=== PATIENT | male | born 1965 | race Caucasian/White ===

== ENCOUNTER 2017-07-27 20:23 | Emergency (ER) | payer OTHER, SELFPAY ==
[2017-07-27] MEDS ORDERED: HYDROcodone/Acetaminophen 5/325 mg Tablet ONE (20:42)
[2017-07-27] MEDS ORDERED: Ondansetron ODT 4 MG TAB ONE (20:43)
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
== END 2017-07-27 23:24 | disposition home or self-care (01) ==
LOC: ERS 20:23
DX: S32.029A Unspecified fracture of second lumbar vertebra, initial encounter for closed fracture (principal); S16.1XXA Strain of muscle, fascia and tendon at neck level, initial encounter; E78.5 Hyperlipidemia, unspecified; F41.9 Anxiety disorder, unspecified; F31.9 Bipolar disorder, unspecified; F17.210 Nicotine dependence, cigarettes, uncomplicated; V43.92XA Unspecified car occupant injured in collision with other type car in traffic accident, initial encounter
CPT/HCPCS: 72125; 72131; Q0162

== ENCOUNTER 2018-07-11 14:37 | Inpatient (IN) | payer SELFPAY ==
[2018-07-11] MEDS ORDERED: methylPREDNISolone Sod Succ/PF 125 MG/2 ML VIAL ONE (15:23)
[2018-07-11 15:41] LABS: Hemoglobin 13.9 g/dL (14.0-18.0); Mean Corpuscular HGB CONC 33.5 g/dL (32.0-36.0); Mean Corpuscular Hemoglobin 30.3 pg (27.0-31.0); Mean Corpuscular Volume 90.4 fL (78.0-98.0); Mean Platelet Volume 7.7 fL (7.4-10.4); Platelet Count 325 thou/uL (130-400); RBC Distribution Width 12.4 % (11.5-14.5); Red Blood Cell (RBC) Count 4.58 mill/uL (4.70-6.10); White Blood Cell (WBC) Count 9.4 thou/uL (4.8-10.8)
--- NOTE | 2018-07-11 15:55 | RAD ---
PORTABLE CHEST: History: Cough, congestion. Shortness of breath. Comparison: 08-28-15 FINDINGS: Heart size is enlarged. Pulmonary vessels are mildly engorged, slightly more prominent than seen on t he prior examination. No signs of overt failure. IMPRESSION: Cardiomegaly with mild vascular engorgement. POS: TPC
[2018-07-11 16:01] LABS: Band 16 % (5-11); Lymphocytes 16 % (21-51); MDiff Complete? YES; Monocytes 16 % (0-10); Neutrophil 49 % (42-75); Platelet Morphology Comment Appears Adequate; Polychromasia SLIGHT = 2-3 cells (100X) (0-2/hpf); Reactive Lymphocytes 3 % (0-10)
[2018-07-11] MEDS ORDERED: Oseltamivir 75 MG CAP PO SCH (16:45)
[2018-07-11 17:02] LABS: Base Excess-Venous 2.7 mmol/L (0 (+/- 2.5)); Bicarbonate (HCO3v) 26.2 mmol/L (22.0-29.0); CO2 Tension (PvCO2) 36.3 mmHg (41.0-51.0); Calcium, Ionized 1.02 mmol/L (1.12-1.32); Hemoglobin - Calc 15.8 g/dL (12.0-18.0); O2 Tension (PvO2) 63.7 mmHg (35.0-45.0); Potassium 3.8 mmol/L (3.4-4.7); T. Carbon Dioxide 27.3 mmol/L (1.0-85.0); pH (Venous) 7.467 (7.35-7.45); vO2 Saturation-calc 93.4 % (94-98)
[2018-07-11] MEDS ORDERED: Acetaminophen 500 MG TAB ONE (17:08)
[2018-07-11 17:33] LABS: Albumin 4.1 g/dL (3.5-5.0)
[2018-07-11 17:34] LABS: Calcium 8.9 mg/dL (7.8-10.44); Chloride 96 mmol/L (98-107); Potassium 3.9 mmol/L (3.5-5.1); Sodium 130 mmol/L (136-145)
[2018-07-11 17:35] LABS: Globulin 2.6 g/dL (2.4-3.5); Glucose 121 mg/dL (70-105); Protein, Total 6.7 g/dL (6.0-8.3)
[2018-07-11 17:37] LABS: Anion Gap 15 mmol/L (10-20); Bilirubin, Total 0.4 mg/dL (0.2-1.2); Carbon Dioxide 23 mmol/L (22-29)
[2018-07-11 17:38] LABS: Alkaline Phosphatase 92 U/L (40-150)
[2018-07-11 17:39] LABS: BUN (Urea Nitrogen) 20 mg/dL (8.4-25.7); Calc. Creatinine Clearance 0 mL/min (70-130); Estimated GFR-MDRD Greater than 90
[2018-07-11 17:40] LABS: AST (SGOT) 23 U/L (5-34)
[2018-07-11 17:41] LABS: ALT (SGPT) 19 U/L (8-55)
[2018-07-11] MEDS ORDERED: HumaLOG 300 UNITS/3 ML VIAL SC PRN (23:58)
[2018-07-11] MEDS ORDERED: Ondansetron PF 4 MG/2 ML Vial IVP PRN (23:58)
[2018-07-11] MEDS ORDERED: Acetaminophen 650 MG Suppository PR PRN (23:58)
[2018-07-11] MEDS ORDERED: Senokot S 8.6-50 MG TAB PO PRN (23:58)
[2018-07-11] MEDS ORDERED: hydrALAZINE 20 MG/ML VIAL SLOW IVP PRN (23:58)
[2018-07-11] MEDS ORDERED: Dextrose 50% Abboject 50 ML SYRINGE SLOW IVP PRN (23:58)
[2018-07-11] MEDS ORDERED: Ibuprofen 600 MG TAB PO PRN (23:58)
[2018-07-11] MEDS ORDERED: Dextrose 5% in Water 1,000 ML IV PRN (23:58)
[2018-07-11] MEDS ORDERED: cloNIDine 0.1 MG TAB PO PRN (23:58)
[2018-07-11] MEDS ORDERED: Ondansetron ODT 4 MG TAB PO PRN (23:58)
[2018-07-12] MEDS ORDERED: Oseltamivir 75 MG CAP PO SCH (00:15)
--- NOTE | 2018-07-12 00:40 | HP ---
PRIMARY CARE PHYSICIAN: Rose Russell. CHIEF COMPLAINT: Shortness of breath. HISTORY OF PRESENT ILLNESS: This is a 52-year-old white male with a known history of hypertension, hyperlipidemia and borderline diabetes as well as a history of longstanding tobacco abuse, who presents to the emergency room complaining of shortness of breath. The shortness of breath has been going on for 2 days and is associated with fevers, chills, runny nose, sore throat, body aches and a cough productive of clear sputum. The patient was seen in the emergency room, noted to be room air hypoxic, now saturating well on 4 L. He was very wheezy and given DuoNebs and Solu-Medrol. He has no history of COPD, but does have a longstanding history of smoking. His flu A test was positive. Chest x-ray was negative for pneumonia, so he is being admitted to the hospital. PAST MEDICAL HISTORY: 1. Hypertension. 2. Dyslipidemia. 3. Mesenteric artery occlusion. 4. 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 PAST PSYCHIATRIC HISTORY: Depression. PAST SURGICAL HISTORY: Laminectomy at L3-L4 in 1989. 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 He smokes half to three-quarter pack per day for last 40 years. Denies any alcohol or illicit drug use. He is , but states that his ex- is his fiancee now. FAMILY HISTORY: Mother of either a stroke or blood clots of some sort in her 40s. Father of a bad blood transfusion. Both mother and father had diabetes and hypertension. ALLERGIES: SULFA ANTIBIOTICS. CURRENT MEDICATIONS: Daily multivitamin. REVIEW OF SYSTEMS: CONSTITUTIONAL: See HPI. EYES: No double vision or blurred vision. ENT: See HPI. CARDIOVASCULAR: No chest pain. No palpitations or racing heart. PULMONARY: See HPI. GASTROINTESTINAL: He has abdominal soreness from the persistent coughing, but denies any nausea or vomiting. No diarrhea or constipation. GENITOURINARY: No dysuria or hematuria. MUSCULOSKELETAL: Generalized muscle aches as per HPI. SKIN: No rashes or other lesions noted. NEUROLOGIC: Chronic numbness and tingling in his left hand. PHYSICAL EXAMINATION: VITAL SIGNS: Blood pressure 107/56, pulse 90, respirations 18, temperature 99.0, and O2 saturation 95% on 4 L. GENERAL: This is a well-developed obese white male with mild increased work of breathing and intermittent coughing spells, on oxygen. HEENT: Pupils equal, round, and reactive to light. Oropharynx clear without lesions, erythema or exudate. NECK: Supple. No lymphadenopathy. No thyroid nodules or enlargement. No JVD. HEART: Regular rate and rhythm. No murmurs, rubs or gallops. LUNGS: He has bilateral wheezes and tight breath sounds bilaterally. ABDOMEN: Obese, soft, generalized mild tenderness to palpation of the abdominal wall. No guarding or rebound tenderness. No hepatosplenomegaly or other masses. EXTREMITIES: No clubbing, cyanosis or edema. Good peripheral pulses. SKIN: No rashes or other lesions noted. NEUROLOGIC: Intact strength in all extremities. No facial droop. LABORATORY DATA: CBC with a hemoglobin of 13.9 and hematocrit of 41.4. The rest is normal. Venous blood gas shows a pH of 7.4, pCO2 of 36, and pO2 of 63. His sodium was 131, potassium was 3.8, and chloride was 94. I do not see a creatinine drawn at this time. Lactic acid was negative. Troponin was negative. Brain natriuretic peptide was normal. DIAGNOSTIC DATA: I did review the chest x-ray done in the emergency room along with the radiologist's report. The chest x-ray shows no infiltrates. There is some possible pulmonary vascular engorgement and a large heart. Flu test positive for influenza A. ASSESSMENT: 1. Influenza A. The patient got a dose of Tamiflu in the ER. We will continue for a full 10 doses and put the patient on droplet isolation. 2. Acute hypoxic respiratory failure, likely exacerbation of underlying chronic obstructive pulmonary disease. The patient is now on home oxygen; hopefully, he will respond well to steroids and nebulizers, and eventually I will get him back off to room air over the next few days. Should it take a prolonged time to get him off, he may benefit from a pulmonology consult during his hospitalization. 3. History of hypertension, currently without any elevated blood pressures. We will put some p.r.n. medications, especially with being on the steroids, and watch closely. 4. History of borderline diabetes. We will put the patient on fingerstick blood sugars q.a.c. and at bedtime with low insulin sliding scale. Check hemoglobin A1c in the morning. 5. Gastrointestinal prophylaxis. We will put the patient on Protonix 40 mg daily. 6. Arthritis pains and generalized body aches. We will give the patient alternating Tylenol and ibuprofen. We will go ahead and check creatinine to make sure he does not have any underlying renal insufficiency. 7. Code status: I did discuss this with the patient. He is a full code. Should he be incapacitated, he states that his medical decision maker would be his Della reed. Job ID: [id number]
[2018-07-12] MEDS ORDERED: Ibuprofen 200 MG TAB ONE (02:32)
[2018-07-12] MEDS ORDERED: Acetaminophen 325 MG TAB ONE (02:32)
[2018-07-12] MEDS: Acetaminophen 325 MG TAB PO PRN ×3 (02:34→21:28)
[2018-07-12 03:08] VITALS: BMI 35.9
[2018-07-12 04:03] LABS: #Lymphocytes 0.7 thou/uL (1.20-3.40); #Monocytes 1.2 thou/uL (0.11-0.59); #Neutrophils 9.3 thou/uL (1.40-6.50); %Basophils 0.1 % (0.0-1.0); %Eosinophils 0.4 % (0.0-10.0); %Lymphocytes 6.6 % (21.0-51.0); %Monocytes 10.6 % (0.0-10.0); %Neutrophils 82.4 % (42.0-75.0); Hemoglobin 14.1 g/dL (14.0-18.0); Mean Corpuscular HGB CONC 32.7 g/dL (32.0-36.0); Mean Corpuscular Volume 91.9 fL (78.0-98.0); Mean Platelet Volume 6.8 fL (7.4-10.4); Platelet Count 303 thou/uL (130-400); RBC Distribution Width 12.3 % (11.5-14.5); Red Blood Cell (RBC) Count 4.68 mill/uL (4.70-6.10); White Blood Cell (WBC) Count 11.3 thou/uL (4.8-10.8)
[2018-07-12 04:12] LABS: Hemoglobin A1c 5.7 % (4.0-6.0)
[2018-07-12 04:22] LABS: Anion Gap 16 mmol/L (10-20); BUN (Urea Nitrogen) 21 mg/dL (8.4-25.7); Calc. Creatinine Clearance 248 mL/min (70-130); Calcium 9.5 mg/dL (7.8-10.44); Carbon Dioxide 23 mmol/L (22-29); Chloride 101 mmol/L (98-107); Estimated GFR-MDRD Greater than 90; Glucose 131 mg/dL (70-105); Potassium 4.4 mmol/L (3.5-5.1); Sodium 136 mmol/L (136-145)
--- NOTE | 2018-07-12 08:48 | PDOC.PN ---
- Subjective Encounter Start Date: 07/12/18 Encounter Start Time: 11:00 Subjective: Patient feeling much better. Able to decrease O2 to 2L today. Wheezing and -: chest tightness significantly better. - Objective Resuscitation Status - Order Detail: 07/11/18 17:09 Resuscitation Status Routine Resuscitation Status: FULL: Full Resuscitation Discussed with: Patient JEANNIE Reviewed: Yes Vital Signs & Weight: Vital Signs (12 hours) Temp Pulse Resp BP BP Pulse Ox 07/12/18 07:31 79 20 126/47 L 95 07/12/18 07:00 97.7 F 77 24 H 128/67 95 07/12/18 06:38 78 20 97 07/12/18 04:59 97.7 F 07/12/18 04:42 67 16 96 07/12/18 04:00 72 20 106/62 94 L 07/12/18 03:03 97.8 F 79 20 124/73 94 L Weight Weight 243 lb Result Diagrams: 07/12/18 03:55 07/12/18 03:55 Additional Labs: Accuchecks 07/12/18 05:23 POC Glucose 122 H Phys Exam - Physical Examination Constitutional: NAD HEENT: moist MMs Respiratory: no rales, no rhonchi wheezing and tightness improved, much better air movement today Cardiovascular: RRR, no significant murmur Gastrointestinal: soft, positive bowel sounds Neurological: non-focal, moves all 4 limbs Psychiatric: normal affect, A&O x 3 Dx/Plan (1) Influenza A Code(s): J10.1 - FLU DUE TO OTH IDENT INFLUENZA VIRUS W OTH RESP MANIFEST Status: Acute Comment: Tamiflu (2) Acute respiratory failure with hypoxia Code(s): J96.01 - ACUTE RESPIRATORY FAILURE WITH HYPOXIA Status: Acute Comment: weaned to 2L NC O2 (3) COPD (chronic obstructive pulmonary disease) with acute bronchitis Code(s): J44.0 - CHRONIC OBSTRUCTIVE PULMON DISEASE W ACUTE LOWER RESP INFCT; J20.9 - ACUTE BRONCHITIS, UNSPECIFIED Status: Acute Comment: on negs, steroids (4) Tobacco abuse Code(s): Z72.0 - TOBACCO USE Status: Chronic Comment: Patient determined to quit (5) Diabetes mellitus type 2 in obese Code(s): E11.69 - TYPE 2 DIABETES MELLITUS WITH OTHER SPECIFIED COMPLICATION; E66.9 - OBESITY, UNSPECIFIED Status: Chronic Comment: Blood sugars not significantly elevated even on steroids - Plan cont current plan of care, respiratory therapy, DVT proph w/lovenox, DVT proph w /SCDs If continues to improve quickly can likely go home tomorrow. * . - Discharge Encounter end time: 11:10
[2018-07-12] MEDS ORDERED: Enoxaparin Sodium 40 MG/0.4 ML SYRINGE ONE (09:36)
[2018-07-12] MEDS: Enoxaparin Sodium 40 MG/0.4 ML SYRINGE SC SCH (09:50)
[2018-07-12] MEDS: HumaLOG 300 UNITS/3 ML VIAL SC PRN (13:49)
[2018-07-12] MEDS ORDERED: Prevnar 13-Val Conj/PF 0.5 ML SYRINGE IM ONE (14:45)
[2018-07-12] MEDS ORDERED: Ibuprofen 200 MG TAB PO PRN (18:51)
[2018-07-12] MEDS ORDERED: Guaifenesin DM 100-10/5 ML UDCUP PO PRN (18:52)
[2018-07-12] MEDS: Gabapentin 100 MG CAP PO SCH (21:28)
[2018-07-13] MEDS ORDERED: Loratadine 10 MG TAB PO PRN (01:05)
[2018-07-13] MEDS: HumaLOG 300 UNITS/3 ML VIAL SC PRN (06:33)
--- NOTE | 2018-07-13 08:06 | PDOC.PN ---
- Subjective Encounter Start Date: 07/13/18 Encounter Start Time: 10:00 Subjective: Patient feeling much better. Off Oxygen. Eager to go home. - Objective Resuscitation Status - Order Detail: 07/11/18 17:09 Resuscitation Status Routine Resuscitation Status: FULL: Full Resuscitation Discussed with: Patient JEANNIE Reviewed: Yes Vital Signs & Weight: Vital Signs (12 hours) Temp Pulse Resp BP Pulse Ox 07/13/18 06:58 84 18 94 L 07/13/18 05:42 97.9 F 79 20 131/74 93 L 07/13/18 00:53 75 16 07/13/18 00:00 98.1 F 75 20 112/65 98 Weight Weight 243 lb I&O: 07/12/18 07/13/18 07/14/18 06:59 06:59 06:59 Intake Total 1939 Balance 1939 Result Diagrams: 07/12/18 03:55 07/12/18 03:55 Additional Labs: Accuchecks 07/13/18 07/12/18 07/12/18 05:42 21:14 16:46 POC Glucose 202 H 187 H 185 H 07/12/18 13:43 POC Glucose 225 H Phys Exam - Physical Examination Constitutional: NAD HEENT: moist MMs Respiratory: no rales, no rhonchi wheezing almost cleared, good air movement bilaterally Cardiovascular: RRR Gastrointestinal: soft, positive bowel sounds Neurological: non-focal, moves all 4 limbs Psychiatric: normal affect, A&O x 3 Dx/Plan (1) Influenza A Code(s): J10.1 - FLU DUE TO OTH IDENT INFLUENZA VIRUS W OTH RESP MANIFEST Status: Acute Comment: Tamiflu (2) Acute respiratory failure with hypoxia Code(s): J96.01 - ACUTE RESPIRATORY FAILURE WITH HYPOXIA Status: Resolved Comment: weaned of O2 today (3) COPD (chronic obstructive pulmonary disease) with acute bronchitis Code(s): J44.0 - CHRONIC OBSTRUCTIVE PULMON DISEASE W ACUTE LOWER RESP INFCT; J20.9 - ACUTE BRONCHITIS, UNSPECIFIED Status: Acute Comment: on negs, steroids (4) Tobacco abuse Code(s): Z72.0 - TOBACCO USE Status: Chronic Comment: Patient determined to quit (5) Diabetes mellitus type 2 in obese Code(s): E11.69 - TYPE 2 DIABETES MELLITUS WITH OTHER SPECIFIED COMPLICATION; E66.9 - OBESITY, UNSPECIFIED Status: Chronic Comment: Blood sugars not significantly elevated even on steroids - Plan cont current plan of care, respiratory therapy Will d/c home with albuterol, steroids, Tamiflu. * . - Discharge Day Encounter end time: 10:20
[2018-07-13 08:10] VITALS: TEMP 97.7
[2018-07-13] MEDS: Enoxaparin Sodium 40 MG/0.4 ML SYRINGE SC SCH (08:29)
[2018-07-13] MEDS: Gabapentin 100 MG CAP PO SCH (08:29)
[2018-07-13] MEDS ORDERED: guaiFENesin ER 600 MG TAB PO SCH (09:00)
[2018-07-13] MEDS ORDERED: Oseltamivir 75 MG CAP PO SCH (09:00)
[2018-07-13 11:29] VITALS: BP 137/77
--- NOTE | 2018-07-13 14:57 | DIS ---
DATE OF ADMISSION: 07/11/2018 DATE OF DISCHARGE: 07/13/2018 PRIMARY CARE PHYSICIAN: Rose Russell. REASON FOR ADMISSION: Influenza A with COPD exacerbation. DIAGNOSES AT DISCHARGE: 1. Influenza A. 2. Respiratory failure with hypoxia, resolved. 3. Chronic obstructive pulmonary disease exacerbation. 4. Tobacco abuse. 5. Diabetes mellitus type 2. PROCEDURES: None. CONSULTATIONS: None. HOSPITAL COURSE: This is a 52-year-old white male with a known history of hypertension, hyperlipidemia, and borderline diabetes controlled with diet. He presented with 2 days of fevers, chills, body aches, and then severe shortness of breath. He was found to be hypoxic on room air, was given DuoNeb, steroids, and high dose of oxygen in the emergency room and initially stabilized. He never did need BiPAP. The patient has no history of COPD, but a longstanding history of smoking and his flu test was positive for flu A. the patient was admitted to the hospital. He was given IV steroids, Tamiflu, and regular nebulizers. He improved over the next two days, was able to be weaned off oxygen and was breathing much better with much less wheezing and he had no fevers during the hospitalization. He is being discharged home. DISCHARGE MANAGEMENT: Discharged home. FOLLOWUP: Follow up with primary care physician. He is to establish in 1-2 weeks. ACTIVITY: As tolerated. DIET: Diabetic diet. 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 He has not had any fever for full 24 hours, so he is safe to go back to work tomorrow as long as he wears a mask and use alcohol in his hands regularly. DISCHARGE MEDICATIONS: 1. Albuterol inhaler two puffs every 4 hours as needed. 2. Guaifenesin DM 10 mL q.4 hours as needed for cough. 3. Tamiflu 75 mg twice a day for six more tablets. 4. Prednisone 20 mg daily for three more days for a total of five days of steroids. 5. Gabapentin 300 mg twice a day, 60 caps dispensed. The patient's blood sugar remains relatively good in the hospital, even on the steroids. We will not be discharging with any diabetes medicines at this time and his hemoglobin A1c was fine, and it is 5.7. Job ID: [id number]
== END 2018-07-13 12:24 | disposition home or self-care (01) | DRG 193 ==
LOC: ERS 14:37 → T4-B 18:15 → ERHOLD 18:15 → T4-B 07-12 11:40
PROVIDERS: ADMIT Emergency Medicine; ATTEND Emergency Medicine
DX: J10.1 Influenza due to other identified influenza virus with other respiratory manifestations (principal); J96.01 Acute respiratory failure with hypoxia; J44.0 Chronic obstructive pulmonary disease with (acute) lower respiratory infection; J44.1 Chronic obstructive pulmonary disease with (acute) exacerbation; I10 Essential (primary) hypertension; F32.9 Major depressive disorder, single episode, unspecified; E78.5 Hyperlipidemia, unspecified; F17.210 Nicotine dependence, cigarettes, uncomplicated; M25.50 Pain in unspecified joint; J20.9 Acute bronchitis, unspecified; E11.69 Type 2 diabetes mellitus with other specified complication; E66.9 Obesity, unspecified; Z98.890 Other specified postprocedural states; Z88.2 Allergy status to sulfonamides; Z88.1 Allergy status to other antibiotic agents; Z68.35 Body mass index [BMI] 35.0-35.9, adult
CPT/HCPCS: 36415; 36416; 71045; 80048; 80053; 82330; 82803; 83036; 83605; 83880; 84484; 85025; 87804; 90471; 90670; 90686; 90732; 93005; 94640; 94760; 96361; 96374; G0008; G0009; J1650; J2920; J2930; J7620